=== PATIENT | female | born 1950 | race Caucasian/White ===

== ENCOUNTER 2019-06-22 08:45 | Emergency (ER) | payer MEDICARE, OTHER ==
[~2019-06-22] VITALS: Ht 167.6 cm; Wt 108.9 kg
[2019-06-22] MEDS ORDERED: BAYER BACK & B1 EACH PO (08:56)
[2019-06-22] MEDS ORDERED: AIRBORNE EFFER1 EACH PO (08:56)
[2019-06-22] MEDS ORDERED: WELLBUTRIN XL150 MG PO (08:57)
[2019-06-22] MEDS ORDERED: BREO ELLIPTA 11 EACH INH (08:57)
[2019-06-22] MEDS ORDERED: CENTRUM SILVER1 EAC4 PO (08:57)
[2019-06-22] MEDS ORDERED: VITAMINC500 PO (08:57)
[2019-06-22] MEDS ORDERED: VITAMIN D3400 UNIT PO (08:58)
[2019-06-22] MEDS ORDERED: OMEPRAZOLE 20 M20 M1 PO (08:59)
[2019-06-22] MEDS ORDERED: EPIPEN0.3 MG/0.1 IM (08:59)
[2019-06-22] MEDS ORDERED: LEXAPRO20 MG PO (08:59)
[2019-06-22] MEDS ORDERED: PROBIOTIC1 EAC1 PO (09:00)
[2019-06-22] MEDS ORDERED: PEPCID COMPLET1 EACH PO (09:00)
[2019-06-22] MEDS ORDERED: PROAIR HFA8.5 GM INH (09:00)
[2019-06-22] MEDS ORDERED: ZYRTEC10 M5 PO (09:01)
[2019-06-22] MEDS ORDERED: PREDNISONE 20 M20 M1 PO (09:46)
[2019-06-22] MEDS ORDERED: VENTOLIN HFA 1818 GM INH (09:46)
[2019-06-22] MEDS ORDERED: ZPAK PO (09:46)
[2019-06-22 10:13] VITALS: BP 144/68
== END 2019-06-22 10:13 | disposition home or self-care (01) ==
LOC: M.ERS 08:45
DX: J45.901 Unspecified asthma with (acute) exacerbation (principal); Z88.5 Allergy status to narcotic agent; Z90.49 Acquired absence of other specified parts of digestive tract; Z90.710 Acquired absence of both cervix and uterus